=== PATIENT | male | born 1985 | race Caucasian/White ===

== ENCOUNTER 2023-12-29 21:21 | Inpatient (IN) | payer OTHER, SELFPAY ==
[2023-12-29] VITALS (11 sets, daily range): BP systolic 133–154; BP diastolic 76–90; PULSE 103–111; TEMP 37.1; O2SAT 98–100; BMI 27.7
[2023-12-29 21:51] LABS: Clarity Urine CLEAR (CLEAR); Color Urine DK. ORANGE (YELLOW); Specific Gravity Urine 1.015 (1.005-1.025)
--- NOTE | 2023-12-29 21:51 | CT_ITS ---
The [address] [address] Patient Name: ROLANDO GUARDADO MRN: [id number] date: 1985 Sex: M Assigned Patient Location: ER Current Patient Location: Accession/Order Number: [id number] Exam Date: 12/29/2023 22:07 Report Date: 12/29/2023 22:25 At the request of: AMRIT MARKER Procedure: CT abdomen pelvis wo con EXAM: CT scan of the abdomen and pelvis without contrast. Dose reduction technique used: Automated exposure control and/or adjustment of the mA and/or kV according to patient size and/or use of iterative reconstruction technique. REASON FOR EXAM: Rt flank and RLQ abd pain COMPARISON: None FINDINGS: Small fat-containing left inguinal hernia. Moderate-sized esophageal hiatal hernia. No renal, ureteral or bladder calculi. No hydronephrosis. Normal appendix. No free fluid in the abdomen or pelvis. No free intraperitoneal air. No dilated or thickened loops of small bowel or colon. Liver, pancreas, spleen, bilateral kidneys, and bilateral adrenal glands are otherwise unremarkable within the limitations of noncontrast CT. No lymphadenopathy in the abdomen or pelvis. Remainder unremarkable. CT/CT abdomen pelvis wo con IMPRESSION: No acute abnormalities in the abdomen or pelvis. Electronically authenticated by: MONROE ELISE Date: 12/29/2023 22:25
[2023-12-29 21:52] LABS: Bilirubin Urine COLOR INTERFERENCE (NEGATIVE); Glucose Urine UA COLOR INTERFERENCE mg/dL (NEGATIVE); Protein Urine COLOR INTERFERENCE mg/dL (NEG/TRACE); pH Urine COLOR INTERFERENCE (5.0-9.0)
[2023-12-29 21:53] LABS: Blood Urine COLOR INTERFERENCE (NEGATIVE); Ketones Urine COLOR INTERFERENCE mg/dL (NEGATIVE); Leukocyte Esterase Urine COLOR INTERFERENCE (NEGATIVE); Nitrite Urine COLOR INTERFERENCE (NEGATIVE); Urine Microscopic Indicated YES; Urobilinogen Urine COLOR INTERFERENCE EU/dL (0.2-1.0)
--- NOTE | 2023-12-29 21:53 | ED_ITS ---
HPI - Male Genitourinary General Chief complaint: Urogenital-Male Stated complaint: UTI Complaint Time Seen by Provider: 12/29/23 21:39 Source: patient Mode of arrival: walk-in Limitations: no limitations History of Present Illness HPI Narrative: This 38-year-old male presents for evaluation of right flank pain and dysuria. The patient states the symptoms started presently 6 days ago when he was having pain with urination. He started drinking more fluids and has been taking Urichol and Azo mild relief of his symptoms. He states he started having flank pain earlier today. He has not having any nausea or vomiting. He denies any penile discharge or concerns for STDs. He has not had a fever. He states that several years ago when he was having hematuria he was seen by a local urologist Dr. Allred. Dr. Allred has since and he is not follow-up with the urologist currently. He denies any diarrhea. He denies any fever. He denies any heavy lifting or strenuous activity causes urine to become dark. He denies any testicular pain or scrotal pain Related Data Home Medications ?Medication ?Instructions ?Recorded ?Confirmed URICALM 2 tab PO TID 12/29/23 12/29/23 methenamine-sod malika-salicyl 162 2 tab PO TID 12/29/23 12/29/23 mg-97 mg-65 mg tablet pantoprazole 40 mg tablet,delayed 40 mg PO QDAY 12/29/23 12/29/23 release Allergies Allergy/AdvReac Type Severity Reaction Status Date / Time acetaminophen [From Vicodin] AdvReac Abdominal Verified 12/29/23 21:31 Pain hydrocodone [From Vicodin] AdvReac Abdominal Verified 12/29/23 21:31 Pain Review of Systems ROS Status of ROS 10 or more systems reviewed and unremark able except as noted in history and below Exam Narrative Exam Narrative: Nurses note and vital signs reviewed and patient is not hypoxic. Blood pressure is elevated at 154/90 and pulse is elevated at 111, he is afebrile and has a normal pulse ox General: Thin, mildly uncomfortable appearing male, no respiratory distress Skin: Warm, dry, no pallor noted. There is no rash noted. Head: Normocephalic, atraumatic Eye: Normal conjunctiva, no drainage, EOMI. PERRL Ears, Nose, Mouth, and Throat: oral mucosa is moist. Cardiovascular: Regular Rate and RhythmS1 S2, no murmurs, rubs or gallops Respiratory: Patient is in no distress, no accessory muscle use, lungs are clear to auscultation, no wheezing, rales or rhonchi Back: non-tender, no reproducible flank tenderness GI: Normal bowel sounds, Tenderness at McBurney's point without rebound guarding or rigidity, negative psoas sign, negative obturator sign, negative Rovsing sign Musculoskeletal: The patient has no evidence of calf tenderness, no pitting edema, symmetrical pulses noted bilaterally Neurological: A&O x4, normal speech Psychiatric: Cooperative Constitutional Vital Signs, click to edit/add: Last Vital Signs Temp 98.3 F 12/30/23 01:30 Pulse 87 12/30/23 01:30 Resp 18 12/30/23 01:30 BP 135/81 12/30/23 01:45 Pulse Ox 96 12/30/23 01:45 O2 Del Method Room Air 12/29/23 21:34 Course Vital Signs Vital signs: Vital Signs Temperature 98.7 F 12/29/23 21:34 Pulse Rate 111 H 12/29/23 21:34 Respiratory Rate 18 12/29/23 21:34 Blood Pressure 154/90 H 12/29/23 21:34 Pulse Oximetry 100 12/29/23 21:34 Oxygen Delivery Method Room Air 12/29/23 21:34 Temperature 98.3 F 12/30/23 01:30 Pulse Rate 87 12/30/23 01:30 Respiratory Rate 18 12/30/23 01:30 Blood Pressure 135/81 12/30/23 01:45 Pulse Oximetry 96 12/30/23 01:45 Oxygen Delivery Method Room Air 12/29/23 21:34 MDM - Male Genitourinary MDM Narrative Medical decision making narrative: This 38-year-old male who has been seen in the past by urology due to hematuria and flank pain with no findings after a cystoscopy presents for evaluation of 4 days of hematuria. The hematuria started on Wednesday with painful hematuria. The patient states he felt like he was urinating razor blades. He has had intermi ttent hematuria since then. He has been taking [id number] bladder relief medications. He states that at times the urine has been very dark and other times it is more like cranberry juice and/or orange. The patient does also have a history of hemorrhoids and states that any use the bathroom he often has a moderate amount of bleeding and the hemorrhoids come out, he is able to reduce the hemorrhoids himself and has not had any issues with them for the past several weeks. On arrival the patient was noted to be mildly tachycardic with a pulse of 111. He was tender in the right lower quadrant but not particularly in the right flank. His urine was red but clear. An IV was placed and he is medicated with IV fluids Toradol and Zofran. He did not have any nausea at the time he was medicated but I think that he may have a kidney stone that would result in nausea and vomiting. Routine labs urinalysis and noncontrast CT scan were ordered. The patient has a white count of 5.4 and hemoglobin of 21.5.The patient does not complain of any chest pain, dizziness or syncope. I repeated the labs to confirm the low hemoglobin and repeat hemoglobin was 5.1. Electrolytes were normal including a normal BUN/creatinine. Lactic acid is elevated at 3.3. 2 sets of blood cultures are ordered. The patient was empirically treated with IV Rocephin for the urinary symptoms. I repeated a CT scan with IV contrast to rule out any perinephric hematoma or other source of bleeding. CT scan is included in the body of this report does not show any acute findings besides a hiatal hernia and multiple pulmonary nodules. Culture is pending at this time. After IV fluids a repeat lactic acid was ordered and is normal now at 0.9. He was type and screened and consented to blood product administration 2 units of packed red bloods were ordered. Transfusion was initiated in the emergency department. He has remained hemodynamically stable. Case was discussed with the hospitalist the patient is accepted for admission. The [place] [id number] CT Scan Report Signed Patient: ROLANDO GUARDADO MR#: [id number] : 1985 Acct:[id number] Age/Sex: 38 / M ADM Date: 12/29/23 Loc: ER Attending Dr: Ordering Physician: Monica Pelayo Date of Service: 12/29/23 Procedure(s): CT abdomen pelvis w con Accession Number(s): [id number] cc: YEHUDA MARIE ~ The [facility] [address] [id number] Patient Name: ROLANDO GUARDADO MRN: [facility]:[id number] date: 1985 Sex: M Assigned Patient Location: ER Current Patient Location: ER Accession/Order Number: [id number] Exam Date: 12/29/2023 23:22 Report Date: 12/30/2023 00:44 At the request of: MONICA MARKER Procedure: CT abdomen pelvis w con EXAM: CT abdomen pelvis w con HISTORY: hematuria, flank pain COMPARISON: CT abdomen and pelvis examination of the same date. TECHNIQUE: Axial CT images through the abdomen and pelvis were obtained after the intravenous administration of contrast. Coronal and sagittal reformats were obtained. Dose reduction techniques were achieved by using automated exposure control and/or adjustment of mA and/or kV according to patient size and/or use of iterative reconstruction technique. FINDINGS: There is a 0.3 cm nodule in the right middle lobe (series 3, image 11). There is a suspected lymph node along the right major fissure measuring up to 2 mm (series 3, image 4). There are scattered calcified granulomas in the lungs. There is a 0.5 cm nodule in the right lower lobe (series 3, image 7). There is a 0.3 cm nodule in the right lower lobe (series 3, image 12). There are calcified left hilar lymph nodes. There is a 0.2 cm nodule in the left lower lobe (series 3, image 13). There is a moderate-sized fluid-filled hiatal hernia. Abdomen: The liver and spleen enhance homogeneously without focal lesion. There is no intra or extrahepatic biliary duct dilatation. The gallbladder is unremarkable. Splenic calcifications are suggestive of prior granulomatous disease. There are scattered colonic diverticula without evidence of acute inflammation. Otherwise, the pancreas, adrenal glands, kidneys, and bowel loops, including the appendix, are unremarkable. There is no mesenteric or retroperitoneal lymphadenopathy. Pelvis: The bladder and rectum are unremarkable. There is no iliac or inguinal lymphadenopathy. There is a small fat-containing left inguinal hernia. Bone windows show no aggressive osseous lesions. CT/CT abdomen pelvis w con IMPRESSION: 1. No renal or ureteral calculi are seen. 2. Scattered pulmonary nodules measuring up to 0.5 cm. Recommend follow-up according to Fleischner Society guidelines: An optional CT of the chest in one year if the patient is high risk. 3. Moderate-sized fluid-filled hiatal hernia. 4. Scattered colonic diverticula without evidence of acute inflammation. 5. Normal appendix. Electronically authenticated by: Gregoria PAINTING Date: 12/30/2023 00:44 Medical Records Medical records narrative: [place] [address] CT Scan Report Signed Patient: ROLANDO GUARDADO MR#: [id number] : 1985 Acct:[id number] Age/Sex: 38 / M ADM Date: 12/29/23 Loc: ER Attending Dr: Ordering Physician: Monica Pelayo Date of Service: 12/29/23 Procedure(s): CT abdomen pelvis wo con Accession Number(s): [id number] cc: FRANKYEHUDA Willam [address] [address] Patient Name: ROLANDO GUARDADO MRN: [id number] date: 1985 Sex: M Assigned Patient Location: ER Current Patient Location: ER Accession/Order Number: [id number] Exam Date: 12/29/2023 22:07 Report Date: 12/29/2023 22:25 At the request of: MONICA PELAYO Procedure: CT abdomen pelvis wo con EXAM: CT scan of the abdomen and pelvis without contrast. Dose reduction technique used: Automated exposure control and/or adjustment of the mA and/or kV according to patient size and/or use of iterative reconstruction technique. REASON FOR EXAM: Rt flank and RLQ abd pain COMPARISON: None FINDINGS: Small fat-containing left inguinal hernia. Moderate-sized esophageal hiatal hernia. No renal, ureteral or bladder calculi. No hydronephrosis. Normal appendix. No free fluid in the abdomen or pelvis. No free intraperitoneal air. No dilated or thickened loops of small bowel or colon. Liver, pancreas, spleen, bilateral kidneys, and bilateral adrenal glands are otherwise unremarkable within the limitations of noncontrast CT. No lymphadenopathy in the abdomen or pelvis. Remainder unremarkable. CT/CT abdomen pelvis wo con IMPRESSION: No acute abnormalities in the abdomen or pelvis. Electronically authenticated by: MONROE ELISE Date: 12/29/2023 22:25 Lab Data Labs: Lab Results 12/29/23 12/29/23 12/29/23 Range/Units 21:45 21:58 22:40 WBC 7.4 6.9 (4.0-11.0) 10^3/uL RBC 3.63 L 3.49 L (4.70-6.10) 10^6/uL Hgb 5.4 L* 5.1 L* (14.0-18.0) g/dL Hct 21.5 L* 20.6 L* (42.0-54.0) % MCV 59.2 L 59.0 L (80.0-94.0) fL MCH 14.9 L 14.6 L (25.9-34.0) pg MCHC 25.1 L 24.8 L (29.9-35.2) g/dL RDW 17.9 H 18.2 H (11.0-15.0) % Plt Count 430 394 (150-450) 10^3/uL MPV 9.8 9.8 (9.5-13.5) fL Neut % (Auto) 62.3 60.6 (43.0-75.0) % Lymph % (Auto) 27.1 26.9 (20.5-60.0) % Jones % (Auto) 8.9 10.5 (1.7-12.0) % Eos % (Auto) 0.9 1.0 (0.9-7.0) % Baso % (Auto) 0.7 0.9 (0.2-2.0) % Neut # (Auto) 4.6 4.2 (1.4-6.5) 10^3/uL Lymph # (Auto) 2.0 1.8 (1.2-3.8) 10^3/uL Jones # (Auto) 0.7 0.7 (0.3-0.8) 10^3/uL Eos # (Auto) 0.1 0.1 (0.0-0.7) 10^3/uL Baso # (Auto) 0.1 0.1 (0.0-0.1) 10^3/uL Abs Immat Gran (auto) 0.01 0.01 (0.00-0.03) 10^3/uL Imm/Tot Granulo (auto) 0.1 0.1 (0.0-0.5) % Sodium 141 (136-145) mmol/L Potassium 3.3 L (3.5-5.1) mmol/L Chloride 103 (98-107) mmol/L Carbon Dioxide 24.4 (21.0-32.0) mmol/L Anion Gap 16.9 BUN 10.0 (7.0-18.0) mg/dL Creatinine 1.13 (0.70-1.30) mg/dL Est GFR ( Amer) >60 (>=60) Est GFR (Non-Af Amer) >60 (>=60) BUN/Creatinine Ratio 8.8 Glucose 134 H (74-106) mg/dL Lactate 3.3 H* (0.4-2.0) mmol/L Calcium 9.1 (8.5-10.1) mg/dL Total Bilirubin 0.3 (0.2-1.0) mg/dL AST 11 L (15-37) U/L ALT 19 (16-63) U/L Alkaline Phosphatase 74 (46-116) U/L Total Protein 7.4 (6.4-8.2) g/dL Albumin 4.1 (3.4-5.0) g/dL Globulin 3.3 g/dL Albumin/Globulin Ratio 1.2 Urine Color Dk. orange (YELLOW) Urine Clarity Clear (CLEAR) Urine pH Color interference A (5.0-9.0) Ur Specific [place] 1.015 (1.005-1.025) Urine Protein Color interference A (NEG/TRACE) mg/dL Urine Glucose (UA) Color interference A (NEGATIVE) mg/dL Urine Ketones Color interference A (NEGATIVE) mg/dL Urine Occult Blood Color interference A (NEGATIVE) Urine Nitrite Color interference A (NEGATIVE) Urine Bilirubin Color interference A (NEGATIVE) Urine Urobilinogen Color interference A (0.2-1.0) EU/dL Ur Leukocyte Esterase Color interference A (NEGATIVE) Urine RBC 0-2 (0-2) #/HPF Urine WBC 0-2 A (NONE SEEN) #/HPF Ur Squamous Epith Cells Rare (NONE/RARE) #/LPF Urine Crystals None seen (None Seen) #/HPF Urine Bacteria None seen (NONE SEEN) #/HPF Urine Casts None seen (NONE SEEN) #/LPF Urine Mucus Large A (NONE SEEN) Ur Culture Indicated? Already ordered Blood Type A Negative Antibody Screen Negative Crossmatch See Detail 12/30/23 Range/Units 01:05 WBC (4.0-11.0) 10^3/uL RBC (4.70-6.10) 10^6/uL Hgb (14.0-18.0) g/dL Hct (42.0-54.0) % MCV (80.0-94.0) fL MCH (25.9-34.0) pg MCHC (29.9-35.2) g/dL RDW (11.0-15.0) % Plt Count (150-450) 10^3/uL MPV (9.5-13.5) fL Neut % (Auto) (43.0-75.0) % Lymph % (Auto) (20.5-60.0) % Jones % (Auto) (1.7-12.0) % Eos % (Auto) (0.9-7.0) % Baso % (Auto) (0.2-2.0) % Neut # (Auto) (1.4-6.5) 10^3/uL Lymph # (Auto) (1.2-3.8) 10^3/uL Jones # (Auto) (0.3-0.8) 10^3/uL Eos # (Auto) (0.0-0.7) 10^3/uL Baso # (Auto) (0.0-0.1) 10^3/uL Abs Immat Gran (auto) (0.00-0.03) 10^3/uL Imm/Tot Granulo (auto) (0.0-0.5) % Sodium (136-145) mmol/L Potassium (3.5-5.1) mmol/L Chloride (98-107) mmol/L Carbon Dioxide (21.0-32.0) mmol/L Anion Gap BUN (7.0-18.0) mg/dL Creatinine (0.70-1.30) mg/dL Est GFR ( Amer) (>=60) Est GFR (Non-Af Amer) (>=60) BUN/Creatinine Ratio Glucose (74-106) mg/dL Lactate 0.9 (0.4-2.0) mmol/L Calcium (8.5-10.1) mg/dL Total Bilirubin (0.2-1.0) mg/dL AST (15-37) U/L ALT (16-63) U/L Alkaline Phosphatase (46-116) U/L Total Protein (6.4-8.2) g/dL Albumin (3.4-5.0) g/dL Globulin g/dL Albumin/Globulin Ratio Urine Color (YELLOW) Urine Clarity (CLEAR) Urine pH (5.0-9.0) Ur Specific [place] (1.005-1.025) Urine Protein (NEG/TRACE) mg/dL Urine Glucose (UA) (NEGATIVE) mg/dL Urine Ketones (NEGATIVE) mg/dL Urine Occult Blood (NEGATIVE) Urine Nitrite (NEGATIVE) Urine Bilirubin (NEGATIVE) Urine Urobilinogen (0.2-1.0) EU/dL Ur Leukocyte Esterase (NEGATIVE) Urine RBC (0-2) #/HPF Urine WBC (NONE SEEN) #/HPF Ur Squamous Epith Cells (NONE/RARE) #/LPF Urine Crystals (None Seen) #/HPF Urine Bacteria (NONE SEEN) #/HPF Urine Casts (NONE SEEN) #/LPF Urine Mucus (NONE SEEN) Ur Culture Indicated? Blood Type Antibody Screen Crossmatch Critical Care Time Critical Care Time Critical Care Time: Yes Total Critical Care Time: 35 Attestation: . Discharge Plan Discharge Chief Complaint: Urogenital-Male Clinical Impression: Hematuria, Pulmonary nodules, Acute blood loss anemia Patient Disposition: Admitted as Observation Time of Disposition Decision: 02:19 Condition: Good Prescriptions / Home Meds: No Action methenamine-sod malika-salicyl 162-97-65 mg tablet 2 tab PO TID URICALM 2 tab PO TID pantoprazole 40 mg tablet,delayed release (DR/EC) 40 mg PO QDAY Print Language: Sudanese Referrals: YEHUDA MARIE [Primary Care Provider] - 1 week
[2023-12-29 21:58] LABS: Bacteria Urine NONE SEEN #/HPF (NONE SEEN); Cast Seen? NONE SEEN #/LPF (NONE SEEN); Crystals Seen? None Seen #/HPF (None Seen); Mucus Urine LARGE (NONE SEEN); RBC Urine 0-2 #/HPF (0-2); Squamous Epithelial Cell Urine RARE #/LPF (NONE/RARE); Urine Culture Indicated ALREADY ORDERED; WBC Urine 0-2 #/HPF (NONE SEEN)
[2023-12-29] MEDS: 0.9 % SODIUM CHLORIDE 1,000 ML 1000 ML IV (22:02)
[2023-12-29] MEDS: KETOROLAC TROMETHAMINE 30 MG/ML VIAL IVP (22:03)
[2023-12-29 22:07] LABS: Basophils Absolute Auto 0.1 10^3/uL (0.0-0.1); Basophils Percent Auto 0.7 % (0.2-2.0); Eosinophils Absolute Auto 0.1 10^3/uL (0.0-0.7); Eosinophils Percent Auto 0.9 % (0.9-7.0); Immature Granulocytes Abs Auto 0.01 10^3/uL (0.00-0.03); Immature Granulocytes Pct Auto 0.1 % (0.0-0.5); Lymphocytes Percent Auto 27.1 % (20.5-60.0); Mean Corpuscular HGB Conc 25.1 g/dL (29.9-35.2); Mean Corpuscular Hemoglobin 14.9 pg (25.9-34.0); Mean Corpuscular Volume 59.2 fL (80.0-94.0); Mean Platelet Volume 9.8 fL (9.5-13.5); Monocytes Absolute Auto 0.7 10^3/uL (0.3-0.8); Monocytes Percent Auto 8.9 % (1.7-12.0); Neutrophils Absolute Auto 4.6 10^3/uL (1.4-6.5); Neutrophils Percent Auto 62.3 % (43.0-75.0); Platelet Count 430 10^3/uL (150-450); Red Blood Count 3.63 10^6/uL (4.70-6.10); Red Cell Distribution Width 17.9 % (11.0-15.0); White Blood Count 7.4 10^3/uL (4.0-11.0)
[2023-12-29 22:17] LABS: Hematocrit 21.5 % (42.0-54.0); Hemoglobin 5.4 g/dL (14.0-18.0)
[2023-12-29 22:24] LABS: Alanine Aminotransferase 19 U/L (16-63); Albumin Globulin Ratio 1.2; Albumin Level 4.1 g/dL (3.4-5.0); Alkaline Phosphatase 74 U/L (46-116); Anion Gap 16.9; Aspartate Amino Transferase 11 U/L (15-37); BUN Creatinine Ratio 8.8; Bilirubin Total 0.3 mg/dL (0.2-1.0); Calcium 9.1 mg/dL (8.5-10.1); Carbon Dioxide 24.4 mmol/L (21.0-32.0); Chloride 103 mmol/L (98-107); Estimated GFR (African America >60 (>=60); Estimated GFR (Non-African Ame >60 (>=60); Globulin 3.3 g/dL; Glucose 134 mg/dL (74-106); Potassium 3.3 mmol/L (3.5-5.1); Sodium 141 mmol/L (136-145); Total Protein 7.4 g/dL (6.4-8.2)
[2023-12-29 22:27] LABS: Lactate/Lactic Acid 3.3 mmol/L (0.4-2.0)
[2023-12-29 22:58] LABS: Basophils Absolute Auto 0.1 10^3/uL (0.0-0.1); Basophils Percent Auto 0.9 % (0.2-2.0); Eosinophils Absolute Auto 0.1 10^3/uL (0.0-0.7); Immature Granulocytes Abs Auto 0.01 10^3/uL (0.00-0.03); Immature Granulocytes Pct Auto 0.1 % (0.0-0.5); Lymphocytes Absolute Auto 1.8 10^3/uL (1.2-3.8); Lymphocytes Percent Auto 26.9 % (20.5-60.0); Mean Corpuscular HGB Conc 24.8 g/dL (29.9-35.2); Mean Corpuscular Hemoglobin 14.6 pg (25.9-34.0); Mean Platelet Volume 9.8 fL (9.5-13.5); Monocytes Absolute Auto 0.7 10^3/uL (0.3-0.8); Monocytes Percent Auto 10.5 % (1.7-12.0); Neutrophils Absolute Auto 4.2 10^3/uL (1.4-6.5); Neutrophils Percent Auto 60.6 % (43.0-75.0); Platelet Count 394 10^3/uL (150-450); Red Blood Count 3.49 10^6/uL (4.70-6.10); Red Cell Distribution Width 18.2 % (11.0-15.0); White Blood Count 6.9 10^3/uL (4.0-11.0)
[2023-12-29 23:01] LABS: Hematocrit 20.6 % (42.0-54.0); Hemoglobin 5.1 g/dL (14.0-18.0)
--- NOTE | 2023-12-29 23:05 | CT_ITS ---
The [address] [address] Patient Name: ROLANDO GUARDADO MRN: [facility]:[id number] date: 1985 Sex: M Assigned Patient Location: ER Current Patient Location: Accession/Order Number: [id number] Exam Date: 12/29/2023 23:22 Report Date: 12/30/2023 00:44 At the request of: AMRIT MARKER Procedure: CT abdomen pelvis w con EXAM: CT abdomen pelvis w con HISTORY: hematuria, flank pain COMPARISON: CT abdomen and pelvis examination of the same date. TECHNIQUE: Axial CT images through the abdomen and pelvis were obtained after the intravenous administration of contrast. Coronal and sagittal reformats were obtained. Dose reduction techniques were achieved by using automated exposure control and/or adjustment of mA and/or kV according to patient size and/or use of iterative reconstruction technique. FINDINGS: There is a 0.3 cm nodule in the right middle lobe (series 3, image 11). There is a suspected lymph node along the right major fissure measuring up to 2 mm (series 3, image 4). There are scattered calcified granulomas in the lungs. There is a 0.5 cm nodule in the right lower lobe (series 3, image 7). There is a 0.3 cm nodule in the right lower lobe (series 3, image 12). There are calcified left hilar lymph nodes. There is a 0.2 cm nodule in the left lower lobe (series 3, image 13). There is a moderate-sized fluid-filled hiatal hernia. Abdomen: The liver and spleen enhance homogeneously without focal lesion. There is no intra or extrahepatic biliary duct dilatation. The gallbladder is unremarkable. Splenic calcifications are suggestive of prior granulomatous disease. There are scattered colonic diverticula without evidence of acute inflammation. Otherwise, the pancreas, adrenal glands, kidneys, and bowel loops, including the appendix, are unremarkable. There is no mesenteric or retroperitoneal lymphadenopathy. Pelvis: The bladder and rectum are unremarkable. There is no iliac or inguinal lymphadenopathy. There is a small fat-containing left inguinal hernia. Bone windows show no aggressive osseous lesions. CT/CT abdomen pelvis w con IMPRESSION: 1. No renal or ureteral calculi are seen. 2. Scattered pulmonary nodules measuring up to 0.5 cm. Recommend follow-up according to Fleischner Society guidelines: An optional CT of the chest in one year if the patient is high risk. 3. Moderate-sized fluid-filled hiatal hernia. 4. Scattered colonic diverticula without evidence of acute inflammation. 5. Normal appendix. Electronically authenticated by: Gregoria PAINTING Date: 12/30/2023 00:44
[2023-12-29] MEDS: ACETAMINOPHEN 325 MG TABLET 650 MG PO (23:54)
[2023-12-30] VITALS (50 sets, daily range): BP systolic 108–144; BP diastolic 64–94; PULSE 70–94; TEMP 36.5–36.9; O2SAT 94–100; BMI 29.0
[2023-12-30] MEDS: 0.9 % SODIUM CHLORIDE 250 ML IV.SOLN IV (01:00)
[2023-12-30 01:41] LABS: Lactate/Lactic Acid 0.9 mmol/L (0.4-2.0)
[2023-12-30] MEDS: CEFTRIAXONE 1,000 MG in 0.9 % SODIUM CHLORIDE 50 ML 100 MG IV (02:27)
[2023-12-30] MEDS: DEXTROSE 5 % IN WATER 1,000 ML 75 ML IV ×2 (05:43→23:58)
[2023-12-30 06:49] LABS: Basophils Absolute Auto 0.1 10^3/uL (0.0-0.1); Basophils Percent Auto 1.2 % (0.2-2.0); Eosinophils Absolute Auto 0.1 10^3/uL (0.0-0.7); Eosinophils Percent Auto 1.5 % (0.9-7.0); Immature Granulocytes Abs Auto 0.02 10^3/uL (0.00-0.03); Immature Granulocytes Pct Auto 0.3 % (0.0-0.5); Lymphocytes Absolute Auto 2.2 10^3/uL (1.2-3.8); Lymphocytes Percent Auto 37.3 % (20.5-60.0); Mean Corpuscular HGB Conc 27.8 g/dL (29.9-35.2); Mean Corpuscular Hemoglobin 17.7 pg (25.9-34.0); Mean Corpuscular Volume 63.7 fL (80.0-94.0); Mean Platelet Volume 9.7 fL (9.5-13.5); Monocytes Absolute Auto 0.7 10^3/uL (0.3-0.8); Monocytes Percent Auto 12.7 % (1.7-12.0); Neutrophils Absolute Auto 2.7 10^3/uL (1.4-6.5); Platelet Count 323 10^3/uL (150-450); Red Blood Count 3.61 10^6/uL (4.70-6.10); Red Cell Distribution Width 23.9 % (11.0-15.0); White Blood Count 5.8 10^3/uL (4.0-11.0)
[2023-12-30 06:51] LABS: Hemoglobin 6.4 g/dL (14.0-18.0)
[2023-12-30 07:05] LABS: Alanine Aminotransferase 19 U/L (16-63); Albumin Globulin Ratio 1.2; Albumin Level 3.4 g/dL (3.4-5.0); Alkaline Phosphatase 65 U/L (46-116); Anion Gap 14.6; Aspartate Amino Transferase 11 U/L (15-37); BUN Creatinine Ratio 9.7; Bilirubin Total 0.5 mg/dL (0.2-1.0); Calcium 8.5 mg/dL (8.5-10.1); Carbon Dioxide 24.2 mmol/L (21.0-32.0); Chloride 108 mmol/L (98-107); Estimated GFR (African America >60 (>=60); Estimated GFR (Non-African Ame >60 (>=60); Globulin 2.9 g/dL; Glucose 92 mg/dL (74-106); Potassium 3.8 mmol/L (3.5-5.1); Sodium 143 mmol/L (136-145); Total Protein 6.3 g/dL (6.4-8.2)
[2023-12-30 07:10] LABS: Lactate/Lactic Acid 1.6 mmol/L (0.4-2.0)
--- NOTE | 2023-12-30 10:19 | P.HP_ITS ---
<Statement entered by Osbaldo Ramirez MD - 12/30/23 19:50> Patient seen and examined, agree with assessment and plan below. Presented with hematuria and concerned of UTI. Found severe anemia and reports GI bleeding for about a year. General surgery consulted. On antibiotics and await cultures. Diagnosis: 1. Acute blood loss anemia 2. GI bleed 3. Hematuria 4. UTI 5. Lactic acidosis 6. Pulmonary nodules HPI H&P: HPI History of Present Illness Chief complaint: UTI Complaint Narrative: 12/30/23 0935 This is a 38-year-old male patient with a relatively benign past medical history significant only for GERD, who presented to the ED last night complaining of dysuria and flank pain. He reports onset of dysuria with hematuria on Wednesday (4 days ago). He was treating himself with OTC preparations. He developed right flank pain yesterday and presented to the ED for further evaluation. Workup in the ED revealed lactic acidosis (3.3), hyperglycemia (134), positive UA, and profound anemia (5.4). He was admitted in observation to the hospitalist service last night for a UTI, hematuria, and anemia. A CT of the abdomen pelvis was negative for renal calculi or other acute urinary tract finding. Scattered indeterminate pulmonary nodules were noted with follow-up CT in 1 year recommended. Chronic diverticula were also noted. At the time of my exam the patient is resting comfortably in bed. He is pale and admits to a 2 to 3-year history of intermittent GI bleeding with BRBPR. He attributed this bleeding to his known hemorrhoids but has not pursued any further workup including no colonoscopy. He reports large loraine bleeding at times with clots. He also reports intermittent lightheadedness with standing and shortness of breath with activity for the last 6 months. He denies any abdominal pain, N/V/D, or decreased appetite. He denies NSAID overuse. The patient's admission has been changed to inpatient for suspected GI bleeding and ABLA. We have consulted general surgery for a possible colonoscopy and appreciate Dr. Padilla's assistance with this patient's care. The patient has been made n.p.o. for possible colonoscopy later today and he has had no oral intake except for sips of water since last night. The patient's hemoglobin only felipe to 6.4 after 2 units of PRBCs overnight. We have ordered an additional 2 units of PRBCs to be transfused this morning. We will repeat an H&H at 2 PM and will order further transfusions if indicated. Opioid HPI Opioid Management Most Recent Opioid Data: Last Pain Assessment 12/30/23 11:00 Last ORT Total Score 0 12/30/23 02:34 Last ORT Risk Category Low Risk 12/30/23 02:34 Review of Systems ROS Status of ROS 10 or more systems reviewed and unremark able except as noted in history and below [facility] Medical History (Updated 12/30/23 @ 11:58 by Estee Tian NP) GERD (gastroesophageal reflux disease) ?K21.9 - Gastro-esophageal reflux disease without esophagitis (ICD-10) Hiatal hernia ?K44.9 - Diaphragmatic hernia without obstruction or gangrene (ICD-10) Back pain ?M54.9 - Dorsalgia, unspecified (ICD-10) Acute hemorrhoid ?K64.9 - Unspecified hemorrhoids (ICD-10) Broken thumb ?S62.509A - Fracture of unspecified phalanx of unspecified thumb, initial encounter for closed fracture (ICD-10) Surgical History (Updated 12/30/23 @ 04:22 by Anahi Machado) H/O hernia repair ?Z98.890 - Other specified postprocedural states (ICD-10) ?Z87.19 - Personal history of other diseases of the digestive system (ICD-10) Family History (Updated 12/30/23 @ 02:45 by Anahi Machado) Father Family history of cancer Family history of hypertension Uncle Family history of cancer Grandmother Family history of cancer Grandfather Family history of cancer Family history of myocardial infarction Social History (Updated 12/30/23 @ 02:46 by Anahi Machado) Within the past year, how often did you have a drink containing alcohol: never Score interpretation: A score less than 4 is consistent with normal alcohol consumption. Smoking status: Former smoker Non-prescribed substance use: denies use Previous occupational history: mental health therapist Highest level of school completed/degree received: Master's degree Are you now , , , , never or living with a partner: In a typical week, how many times do you talk on the telephone with family, friends, or neighbors: 3 or more times per week How often do you get together with friends or relatives: once per week How often do you attend anabaptist or scientologist services: 4 or more times per year Do you belong to any clubs or organizations such as anabaptist groups unions, fraternal or athletic groups, or school groups: yes Total score: 4 Score interpretation: A score of greater than or equal to 2 indicates the lowest level of social isolation. Little interest or pleasure in doing things: not at all Feeling down, depressed, or hopeless: not at all Feel stressed/tense/nervous/anxious/difficulty sleeping: not at all Do you think of yourself as: straight/heterosexual Gender Identity: male Meds Home Medications and Allergies Home Medications ?Medication ?Instructions ?Recorded ?Confirmed ?Type URICALM 2 tab PO TID 12/29/23 12/29/23 History methenamine-sod malika-salicyl 162 2 tab PO TID 12/29/23 12/29/23 History mg-97 mg-65 mg tablet pantoprazole 40 mg tablet,delayed 40 mg PO QDAY 12/29/23 12/29/23 History release Allergies Allergy/AdvReac Type Severity Reaction Status Date / Time acetaminophen [From Vicodin] AdvReac Abdominal Verified 12/29/23 21:31 Pain hydrocodone [From Vicodin] AdvReac Abdominal Verified 12/29/23 21:31 Pain Exam Constitutional Vital Signs, click to edit/add: Last Vital Signs Temp 98.4 F 12/30/23 06:47 Pulse 77 12/30/23 10:00 Resp 20 12/30/23 06:47 BP 121/77 12/30/23 06:47 Pulse Ox 94 L 12/30/23 06:47 O2 Del Method Room Air 12/30/23 06:47 Common normals: no apparent distress, oriented x3, alert and well nourished General appearance: cooperative and other (Pale) Orientation/consciousness: Yes awake HENMT Common normals: normocephalic, head/scalp atraumatic, hearing grossly normal bilaterally, external nose normal and moist oral mucous membranes Eye Common normals: PERRL, EOMs intact bilaterally, conjunctivae normal and no scleral icterus Alignment: alignment normal Eyelid: eyelids normal Neck & C-Spine Common normals: full ROM, supple and no JVD Chest Common normals: inspection of chest normal Chest: symmetrical chest wall rise Respiratory Common normals: normal respiratory effort, no retractions, no use of accessory muscles and clear to auscultation bilaterally Effort & inspection: able to speak in complete sentences Cardio Common normals: no JVD, regular rate, regular rhythm, S2 normal heart sound, no gallops, no clicks, no murmurs, no rub and peripheral pulses 2+ throughout; S1 heart sound abnormal (split) GI Common normals: Normal to inspection, nondistended, normoactive bowel sounds present, soft to palpation, non-tender, no hepatosplenomegaly, no masses and no bruits Bladder/kidney exam: bladder normal to palpation and no CVA tenderness Back & Pelvis Common normals: thoracic and lumbar spine normal to inspection Extremity Common normals: normal capillary refill and no pedal edema General: normal exam except as noted; no clubbing and no cyanosis Neuro [place] Coma Scale: GCS not evaluated Common normals: CN's II-XII intact bilaterally, moves all extremities, no focal motor deficits and no sensory deficits noted Speech: speech normal Motor exam: strength 5/5 throughout Psych Common normals: mental status grossly normal, thought process normal, affect normal and activity/motor behavior normal Results Labs Labs: Short CBC 12/29/23 12/29/23 12/30/23 Range/Units 21:58 22:40 06:44 WBC 7.4 6.9 5.8 (4.0-11.0) 10^3/uL Hgb 5.4 L* 5.1 L* 6.4 L* (14.0-18.0) g/dL Hct 21.5 L* 20.6 L* 23.0 L* (42.0-54.0) % Plt Count 430 394 323 (150-450) 10^3/uL BMP 12/29/23 12/30/23 21:58 06:44 Sodium 141 143 Potassium 3.3 L 3.8 Chloride 103 108 H Carbon Dioxide 24.4 24.2 BUN 10.0 9.0 Creatinine 1.13 0.93 Glucose 134 H 92 Calcium 9.1 8.5 Liver Function 12/29/23 12/30/23 Range/Units 21:58 06:44 Total Bilirubin 0.3 0.5 (0.2-1.0) mg/dL AST 11 L 11 L (15-37) U/L ALT 19 19 (16-63) U/L Alkaline Phosphatase 74 65 (46-116) U/L Albumin 4.1 3.4 (3.4-5.0) g/dL Urine 12/29/23 Range/Units 21:45 Urine Color Dk. orange (YELLOW) Urine Clarity Clear (CLEAR) Urine pH Color interference A (5.0-9.0) Ur Specific [place] 1.015 (1.005-1.025) Urine Protein Color interference A (NEG/TRACE) mg/dL Urine Glucose (UA) Color interference A (NEGATIVE) mg/dL Pulse Oximetry Attestation: I have reviewed the pertinent pulse oximetry results. Imaging CT scan - abdomen: Attestation: I have reviewed the pertinent imaging results. Radiologist's impression: IMPRESSION: 1. No renal or ureteral calculi are seen. 2. Scattered pulmonary nodules measuring up to 0.5 cm. Recommend follow-up according to Fleischner Society guidelines: An optional CT of the chest in one year if the patient is high risk. 3. Moderate-sized fluid-filled hiatal hernia. 4. Scattered colonic diverticula without evidence of acute inflammation. 5. Normal appendix. Assessment and Plan Assessment and Plan (1) Acute blood loss anemia: Assessment and Plan: Acute * Adm inpatient * Hgb 5.4 in ED last night * Acute on chronic blood loss, from likely GIB - see below * Symptomatic w/ SOB w/ activity and lightheadedness w/ standing x 6 mo * 2un PRBCs transfused overnight per ED order * Repeat Hgb this morning is 6.4 * Transfuse and additional 2 un PRBCs now * Repeat HH at 1400 and give additional units if indicated * CBC daily (2) GI bleed: Assessment and Plan: Acute on Chronic * Pt reports 2-3 yr hx of intermittent GIB w/ BRBPR sometimes loraine bleeding with large clots * No previous GI work up/colonoscopy * Pt attributed bleeding to known hemorrhoids and did not pursue further work up * Consult general surgery for possible colonoscopy - we appreciate Dr Padilla' assistance with this pt's care * NPO for possible colonoscopy later today * Diverticula noted on CT imaging - possible bleeding source * See ABLA above (3) Hematuria: Assessment and Plan: Acute * Reported per pt * UA unable to determine RBCs d/t presence of AZO in urine * Probable hematuria in setting of UTI (4) Urinary tract infection: Assessment and Plan: Acute * UA positive in ED, although interference from AZO makes definitive dx difficultu * Ur C&S pending * IVPB Rocephin * No evidence of obstructive renal/urologic pathology on CT abdomen imaging (5) Lactic acidosis: Assessment and Plan: Acute * Lactic acid 3.3 in ED, resolved to 1.6 after IVF administration * Likely 2/2 GI bleeding - no other clinical indicators for sepsis noted (6) Pulmonary nodules: Assessment and Plan: Acute * Indeterminate nodules on CT imaging * Recommend follow up in 1 yr (7) GERD (gastroesophageal reflux disease): Assessment and Plan: Chronic * Continue home PPI
--- NOTE | 2023-12-30 11:25 | CM.NOTE ---
Rounds made with Dr. Ramirez. Dr. Ramirez reviews labs with Mr. Cagle and discusses Consult for General Surgeon. Mr. Cagle verbalizes understanding.
[2023-12-30 14:21] LABS: Hematocrit 26.5 % (42.0-54.0); Hemoglobin 7.5 g/dL (14.0-18.0)
[2023-12-30] MEDS: PEG3350/SOD SULF,BICARB,CL/KCL 4,000 ML SOLN.RECON 4000 ML PO (17:02)
[2023-12-31 02:00] VITALS: PULSE 69
[2023-12-31] MEDS: CEFTRIAXONE 1,000 MG in 0.9 % SODIUM CHLORIDE 50 ML 100 MG IV (02:58)
[2023-12-31 04:00] VITALS: PULSE 69
[2023-12-31 04:35] VITALS: BP 131/81; PULSE 80; TEMP 36.6; O2SAT 98
[2023-12-31 04:57] LABS: Basophils Absolute Auto 0.1 10^3/uL (0.0-0.1); Eosinophils Absolute Auto 0.1 10^3/uL (0.0-0.7); Eosinophils Percent Auto 1.8 % (0.9-7.0); Hematocrit 29.7 % (42.0-54.0); Hemoglobin 8.5 g/dL (14.0-18.0); Immature Granulocytes Abs Auto 0.02 10^3/uL (0.00-0.03); Immature Granulocytes Pct Auto 0.3 % (0.0-0.5); Lymphocytes Absolute Auto 2.2 10^3/uL (1.2-3.8); Lymphocytes Percent Auto 28.1 % (20.5-60.0); Mean Corpuscular HGB Conc 28.6 g/dL (29.9-35.2); Mean Corpuscular Hemoglobin 19.3 pg (25.9-34.0); Mean Corpuscular Volume 67.3 fL (80.0-94.0); Mean Platelet Volume 10.2 fL (9.5-13.5); Monocytes Absolute Auto 0.9 10^3/uL (0.3-0.8); Neutrophils Absolute Auto 4.4 10^3/uL (1.4-6.5); Neutrophils Percent Auto 56.8 % (43.0-75.0); Platelet Count 352 10^3/uL (150-450); Red Blood Count 4.41 10^6/uL (4.70-6.10); Red Cell Distribution Width 26.3 % (11.0-15.0); White Blood Count 7.8 10^3/uL (4.0-11.0)
[2023-12-31 05:21] LABS: Alanine Aminotransferase 16 U/L (16-63); Albumin Globulin Ratio 1.2; Albumin Level 3.7 g/dL (3.4-5.0); Alkaline Phosphatase 74 U/L (46-116); Anion Gap 14.9; Aspartate Amino Transferase 15 U/L (15-37); BUN Creatinine Ratio 6.7; Bilirubin Total 0.7 mg/dL (0.2-1.0); Calcium 9.2 mg/dL (8.5-10.1); Carbon Dioxide 23.7 mmol/L (21.0-32.0); Chloride 107 mmol/L (98-107); Estimated GFR (African America >60 (>=60); Estimated GFR (Non-African Ame >60 (>=60); Glucose 99 mg/dL (74-106); Potassium 3.6 mmol/L (3.5-5.1); Sodium 142 mmol/L (136-145); Total Protein 6.7 g/dL (6.4-8.2)
[2023-12-31 05:27] LABS: Lactate/Lactic Acid 1.1 mmol/L (0.4-2.0)
[2023-12-31 06:00] VITALS: PULSE 71
[2023-12-31] MEDS: LACTATED RINGER'S SOLUTION 1,000 ML 50 ML IV (07:20)
--- NOTE | 2023-12-31 07:30 | P.GSCN_ITS ---
History of Present Illness Consult details Consult date: 12/30/23 Reason for consult: other (acute blood loss anemia) Narrative: Pt is a 38M with hx of GERD, hiatal hernia, and unexplained hematuria who presented to ED with several days of back pain and hematuria. He was found to be severely anemic with Hgb of 5.1, and surgery was consulted for workup of acute blood loss anemia after pt also revealed he has had BRBPR for 2-3 years. This afternoon, pt is seen at bedside. He states his GI bleeding is likely due to his internal hemorrhoids, though he has never had an evaluation for this before. He states he was profuse bleeding with every BM for months at a time. There is often so much blood in the toilet it obscures the stool, and often there are many clots. He states blood is dark red but denies any black, sticky, or tarry stools. Endorses protruding hemorrhoids that he pushes back inside his rectum after bowel movements. Denies any blood in his underwear between bowel movements. Denies vomiting blood. He states he has been more lightheaded lately and often tires with activity more easily than he used to. He has had an EGD in 2017 and was diagnosed at that time with a hiatal hernia with a nearby ulcer. He had an esophageal stricture that required balloon dilation at that time, as well. He has never had a colonoscopy. He has been worked up by urology for a previous episode of hematuria associated with severe back pain but no dysuria; the hematuria resolved on its own, and no cause was found. Denies regular alcohol use, stating maybe 1 drink in the last 6 months. Former smoker. Occupation is in mental health. Denies family history of colon cancers. Denies family history of bleeding disorders. Paternal family hx of prostate cancer, bladder polyps, brain and lung cancers Maternal family hx of breast and bone cancers. Review of Systems ROS Status of ROS 10 or more systems reviewed and unremark able except as noted in h istory and below Cardiovascular Reports: lightheadedness Genitourinary Reports: painful urination and blood in urine Musculoskeletal Reports: back pain [facility] Medical History (Updated 12/30/23 @ 11:58 by Estee Tian NP) GERD (gastroesophageal reflux disease) ?K21.9 - Gastro-esophageal reflux disease without esophagitis (ICD-10) Hiatal hernia ?K44.9 - Diaphragmatic hernia without obstruction or gangrene (ICD-10) Back pain ?M54.9 - Dorsalgia, unspecified (ICD-10) Acute hemorrhoid ?K64.9 - Unspecified hemorrhoids (ICD-10) Broken thumb ?S62.509A - Fracture of unspecified phalanx of unspecified thumb, initial encounter for closed fracture (ICD-10) Surgical History (Updated 12/30/23 @ 04:22 by Anahi Machado) H/O hernia repair ?Z98.890 - Other specified postprocedural states (ICD-10) ?Z87.19 - Personal history of other diseases of the digestive system (ICD-10) Family History (Updated 12/30/23 @ 02:45 by Anahi Machado) Father Family history of cancer Family history of hypertension Uncle Family history of cancer Grandmother Family history of cancer Grandfather Family history of cancer Family history of myocardial infarction Social History (Updated 12/30/23 @ 02:46 by Anahi Machado) Within the past year, how often did you have a drink containing alcohol: never Score interpretation: A score less than 4 is consistent with normal alcohol consumption. Smoking status: Former smoker Non-prescribed substance use: denies use Previous occupational history: mental health therapist Highest level of school completed/degree received: Master's degree Are you now , , , , never or living with a partner: In a typical week, how many times do you talk on the telephone with family, friends, or neighbors: 3 or more times per week How often do you get together with friends or relatives: once per week How often do you attend jehovah's witness or congregational services: 4 or more times per year Do you belong to any clubs or organizations such as jehovah's witness groups unions, fra [employer] or athletic groups, or school groups: yes Total score: 4 Score interpretation: A score of greater than or equal to 2 indicates the lowest level of social isolation. Little interest or pleasure in doing things: not at all Feeling down, depressed, or hopeless: not at all Feel stressed/tense/nervous/anxious/difficulty sleeping: not at all Do you think of yourself as: straight/heterosexual Gender Identity: male Meds Home Medications and Allergies Home Medications ?Medication ?Instructions ?Recorded ?Confirmed ?Type URICALM 2 tab PO TID 12/29/23 12/29/23 History methenamine-sod malika-salicyl 162 2 tab PO TID 12/29/23 12/29/23 History mg-97 mg-65 mg tablet pantoprazole 40 mg tablet,delayed 40 mg PO QDAY 12/29/23 12/29/23 History release Allergies Allergy/AdvReac Type Severity Reaction Status Date / Time acetaminophen [From Vicodin] AdvReac Abdominal Verified 12/29/23 21:31 Pain hydrocodone [From Vicodin] AdvReac Abdominal Verified 12/29/23 21:31 Pain Exam Constitutional Vital Signs, click to edit/add: Last Vital Signs Temp 97.9 F 12/31/23 04:35 Pulse 71 12/31/23 06:00 Resp 16 12/31/23 04:35 BP 131/81 12/31/23 04:35 Pulse Ox 98 12/31/23 04:35 O2 Del Method Room Air 12/31/23 04:35 Common normals: no apparent distress, oriented x3, alert and well nourished General appearance: cooperative and comfortable Nutritional appearance: overweight HENMT Common normals: normocephalic and head/scalp atraumatic Head and scalp: normal to inspection Chest Common normals: inspection of chest normal Respiratory Common normals: normal respiratory effort and clear to auscultation bilaterally Effort & inspection: able to speak in complete sentences Cardio Common normals: regular rate, regular rhythm and peripheral pulses 2+ throughout GI Common normals: Normal to inspection, nondistended, normoactive bowel sounds present, soft to palpation, non-tender, no masses and no bruits Rectal Exam - Male: visual inspection normal, normal sphincter tone and hemorrhoids (small internal hemorrhoids appreciated; no active bleed detected); no prolapse Extremity Common normals: normal to inspection and full ROM Results Labs Labs: Abnormal lab results 12/29/23 12/30/23 12/31/23 Range/Units 22:40 14:16 04:27 RBC 4.41 L (4.70-6.10) 10^6/uL Hgb 7.5 L 8.5 L (14.0-18.0) g/dL Hct 26.5 L 29.7 L (42.0-54.0) % MCV 67.3 L (80.0-94.0) fL MCH 19.3 L (25.9-34.0) pg MCHC 28.6 L (29.9-35.2) g/dL RDW 26.3 H (11.0-15.0) % [place] # (Auto) 0.9 H (0.3-0.8) 10^3/uL BUN 6.0 L (7.0-18.0) mg/dL Crossmatch See Detail Diabetes panel 12/31/23 Range/Units 04:27 Sodium 142 (136-145) mmol/L Potassium 3.6 (3.5-5.1) mmol/L Chloride 107 (98-107) mmol/L Carbon Dioxide 23.7 (21.0-32.0) mmol/L BUN 6.0 L (7.0-18.0) mg/dL Creatinine 0.89 (0.70-1.30) mg/dL Glucose 99 (74-106) mg/dL Calcium 9.2 (8.5-10.1) mg/dL AST 15 (15-37) U/L ALT 16 (16-63) U/L Alkaline Phosphatase 74 (46-116) U/L Total Protein 6.7 (6.4-8.2) g/dL Albumin 3.7 (3.4-5.0) g/dL Calcium panel 12/31/23 Range/Units 04:27 Calcium 9.2 (8.5-10.1) mg/dL Albumin 3.7 (3.4-5.0) g/dL Pituitary panel 12/31/23 Range/Units 04:27 Sodium 142 (136-145) mmol/L Potassium 3.6 (3.5-5.1) mmol/L Chloride 107 (98-107) mmol/L Carbon Dioxide 23.7 (21.0-32.0) mmol/L BUN 6.0 L (7.0-18.0) mg/dL Creatinine 0.89 (0.70-1.30) mg/dL Glucose 99 (74-106) mg/dL Calcium 9.2 (8.5-10.1) mg/dL Adrenal panel 12/31/23 Range/Units 04:27 Sodium 142 (136-145) mmol/L Potassium 3.6 (3.5-5.1) mmol/L Chloride 107 (98-107) mmol/L Carbon Dioxide 23.7 (21.0-32.0) mmol/L BUN 6.0 L (7.0-18.0) mg/dL Creatinine 0.89 (0.70-1.30) mg/dL Glucose 99 (74-106) mg/dL Calcium 9.2 (8.5-10.1) mg/dL Total Bilirubin 0.7 (0.2-1.0) mg/dL AST 15 (15-37) U/L ALT 16 (16-63) U/L Alkaline Phosphatase 74 (46-116) U/L Total Protein 6.7 (6.4-8.2) g/dL Albumin 3.7 (3.4-5.0) g/dL All other labs normal. Assessment and Plan Assessment and Plan (1) Acute blood loss anemia: (2) GI bleed: (3) Hematuria: (4) Urinary tract infection: (5) Lactic acidosis: (6) Pulmonary nodules: (7) GERD (gastroesophageal reflux disease): Plan 38M with GI hx presenting for 2-3 years of rectal bleeding at 6 days of hematuria with dysuria. Hgb improved from 5.1 to 6.4 s/p 4 units PRBC. MCV 59. Plan -EGD and colonoscopy planned for 12/30 -Bowel prep, clear liquid diet -Recommend lab studies to better delineate microcytic anemia; iron, TIBC, ferritin, B6, lead
--- NOTE | 2023-12-31 07:59 | PM.GSPRC ---
Date of procedure: 12/31/23 Indications for Procedure: anemia Pre-op diagnosis: anemia iron deficiency unexplained Post-op diagnosis: other (prepyloric gastric ulcer small superficial without active bleeding; medium hiatal hernia; mild esophagitis) Procedure: EGD with biopsy prepyloric gastric ulcer, antrum, distal esophagus colonoscopy Findings: prepyloric gastric ulcer mild gastritis and mild esophagitis medium-sized hiatal hernia Minimal diverticulosis Internal hemorrhoids with no signs of active bleeding Anesthesia: MAC Surgeon: Sp Padilla Procedure Summary: PROCEDURE: The patient was taken to the Endoscopy Suite, placed in the left lateral recumbent position, given IV sedation as above. the Olympus EGD scope was advanced under direct visualization into the posterior pharynx esophagus through a medium-sized hiatal hernia into the stomach where there was a small prepyloric gastric ulcer seen without any signs of active bleeding or clots. It was very superficial. Scope was traversed through the pylorus and the 1st 2nd 3rd and 4th portions of the duodenum which were completely normal. The scope was returned to the stomach retroflexed on itself looking the GE junction which was normal except for the hiatal hernia. Biopsies of the ulcer were taken of the antrum to rule out H. pylori. Stasis was maintained. The scope was then withdrawn to the distal esophagus where he was noted to have a medium hiatal hernia and mild esophagitis and one biopsy was taken there. Hemostasis maintained the rest the esophagus was completely normal. The scope was removed from the mouth. A rectal digital exam was performed. The sphincter tone was found to be normal. No rectal masses were appreciated. prostate smooth nonenlarged without nodules.The Olympus video colonoscope was advanced under direct visualization to the rectum, sigmoid colon, descending colon, transverse colon and ascending colon to the ileocecal valve. The underside of the valve was seen. appendiceal lumen was visualized. There are a few diverticuli in the sigmoid colon area minimal. Prep was good.The scope was slowly withdrawn with air being desufflated as it was withdrawn. No gross tumors or polyps were seen. the scope was retroflexed on itself looking at the internal rectal area and there were some small internal hemorrhoids but nothing actively bleeding with the appearance of bleeding.The patient tolerated the procedure well and went to the Recovery Area in satisfactory condition. Estimated blood loss (mL): 0 Specimens: antral and esophageal biopsies Complications: No Condition: stable Disposition: PACU
[2023-12-31 08:59] VITALS: BP 103/59; PULSE 77; TEMP 36.6; O2SAT 96
[2023-12-31] MEDS: OMEPRAZOLE 40 MG CAPSULE.DR PO (09:38)
--- NOTE | 2023-12-31 11:16 | CM.NOTE ---
Rounds made with Dr. Ramirez. Dr. Ramirez reviews EGD/Colonoscopy findings with Randal. Dr. Ramirez explained need to follow up with Urology and General Surgery. Also explained discharge medications and High Fiber diet. Randal verbalizes understanding. Plan for discharge today.
--- NOTE | 2023-12-31 11:27 | PM.DS1 ---
DS: Providers Provider Date of admission: 12/30/23 11:37 Primary care physician: YEHUDA MARIE Consults: 12/30/23 09:50 Consult to General Surgeon Routine Consulting Provider: Sp Padilla Reason for consultation: Ac GIB/ABLA Has provider been notified: No DS: Diagnosis Discharge Diagnosis (1) Acute blood loss anemia: (2) GI bleed: (3) Hematuria: (4) Urinary tract infection: (5) Lactic acidosis: (6) Chronic prepyloric ulcer: (7) Esophagitis: (8) Diverticulosis: (9) Hiatal hernia with GERD: (10) Pulmonary nodules: DS: Summary Hospital Course Hospital Course: Reason for admission: See ER note and H&P for details. 38 y/o male to ER with dysuria and blood in urine. C/o pain with urination for about 1 week. Urine dark and blood. Started using OTC azo and increased fluid intake. Reports prior urology evaluation and cystoscopy few years ago and hematuria resolved on own. Developed nausea and emesis and to ER. WBC normal and hgb low at 5.1. Gave 2 units PRBC and admitted. Hospital course: Repeat hgb 6.4 and gave additional 2 units. Reports feeling weak and lightheaded for months. Reports GI bleeding off and on for months and often will fill toilet with blood after BM. Reports internal hemorrhoids and thought source of bleeding but never had colonoscopy. General surgery consulted. Repeat hgb stable at 8.5. EGD and colonoscopy performed which showed prepyloric ulcer and esophagitis without active bleeding. Also found diverticula and hemorrhoids without bleeding. Increased protonix to BID. Discharged home in stable condition. Will increase protonix to BID. Follow up with surgery and can discuss treatment of hemorrhoids. Need to follow up with urology for hematuria. Time Spent with Patient Time attestation: Total time spent providing and/or coordinating discharge services: Time spent: greater than 30 minutes Exam Constitutional Vital Signs, click to edit/add: Last Vital Signs Temp 97.8 F 12/31/23 08:59 Pulse 77 12/31/23 08:59 Resp 18 12/31/23 08:59 BP 103/59 12/31/23 08:59 Pulse Ox 96 12/31/23 08:59 O2 Del Method Room Air 12/31/23 08:59 Documenting provider has reviewed patient's vital signs: yes Common normals: no apparent distress, oriented x3 and alert HENMT Common normals: normocephalic Eye Common normals: PERRL and EOMs intact bilaterally Respiratory Common normals: normal respiratory effort and clear to auscultation bilaterally Cardio Common normals: regular rate, no gallops, no murmurs and no rub GI Common normals: Normal to inspection, nondistended, normoactive bowel sounds present and non-tender Extremity Common normals: no pedal edema DS: Data Data Completed and Pending Labs on day of discharge: Labs from last 24 hours 12/31/23 12/30/23 12/29/23 04:27 14:16 22:40 WBC 7.8 RBC 4.41 L Hgb 8.5 L 7.5 L Hct 29.7 L 26.5 L MCV 67.3 L MCH 19.3 L MCHC 28.6 L RDW 26.3 H Plt Count 352 MPV 10.2 Neut % (Auto) 56.8 Lymph % (Auto) 28.1 [place] % (Auto) 12.0 Eos % (Auto) 1.8 Baso % (Auto) 1.0 Neut # (Auto) 4.4 Lymph # (Auto) 2.2 [place] # (Auto) 0.9 H Eos # (Auto) 0.1 Baso # (Auto) 0.1 Abs Immat Gran (auto) 0.02 Imm/Tot Granulo (auto) 0.3 Sodium 142 Potassium 3.6 Chloride 107 Carbon Dioxide 23.7 Anion Gap 14.9 BUN 6.0 L Creatinine 0.89 Est GFR ( Amer) >60 Est GFR (Non-Af Amer) >60 BUN/Creatinine Ratio 6.7 Glucose 99 Lactate 1.1 Calcium 9.2 Total Bilirubin 0.7 AST 15 ALT 16 Alkaline Phosphatase 74 Total Protein 6.7 Albumin 3.7 Globulin 3.0 Albumin/Globulin Ratio 1.2 Blood Type A Negative Antibody Screen Negative Crossmatch See Detail Discharge Plan Discharge Disposition: Home, Self-Care Condition: Good Discharge Medications: New cefdinir 300 mg capsule 300 mg PO BID 10 Days Qty: 20 0RF pantoprazole 40 mg tablet,delayed release (DR/EC) 40 mg PO BID Qty: 60 0RF Continued methenamine-sod malika-salicyl 162-97-65 mg tablet 2 tab PO TID URICALM 2 tab PO TID Discontinued pantoprazole 40 mg tablet,delayed release (DR/EC) 40 mg PO QDAY Activity: resume usual activities as tolerated Diet: advance to your usual diet Print Language: Barbadian Forms: Portal Instructions Follow Up Appointments: January 25 @ 12pm with Aniya Miller NP ([facility] with Dr. Padilla) [address], [place] [phone] April 04 @ 10:20 with BHAVESH [facility], [address] , [facility] [phone]
--- NOTE | 2023-12-31 12:12 | SWNOTE1 ---
DONG received message from [facility] and they can accept and will start precert today. DONG notified nursing, pt, and pt's . SW encouraged pt to participate in therapy, even bed exercises. SW let him know if he does not participate his insruance will deny him.
[2024-01-02 10:48] LABS: H Pylori Tissue, Urease Negative
--- NOTE | 2024-01-04 14:12 | CM.DCFOLLOWU ---
Person spoke with: patient How are you feeling? having some pain, today but saw his PCP today How is your pain? some pain Did you understand your discharge instructions? yes Do you have any questions about your discharge instructions? no Were you given any prescriptions at discharge? yes Were you able to get your prescriptions filled? yes Do you understand how to take your medications as ordered? yes Do you have any questions about your follow up appointment and do you plan to keep your follow up appointment? no questions, reviewed follow up apts with pt Is there anything else that you would like to discuss? no Questions/Comments/Concerns/Other: N/A
== END 2023-12-31 12:09 | disposition home or self-care (01) | DRG 378 ==
LOC: ER 12-30 02:19 → MS 12-30 14:45
PROVIDERS: Nurse Practitioner Acute Care; Surgery; Admitting Provider Nurse Practitioner; Emergency Provider Emergency Medicine; PCP Family Medicine; Visit Provider Nurse Practitioner
PROC: 0DB78ZX Excision of Stomach, Pylorus, Via Natural or Artificial Opening Endoscopic, Diagnostic (ICD-10-PCS; principal; 2023-12-31 07:30)
DX: K25.4 Chronic or unspecified gastric ulcer with hemorrhage (principal); D62 Acute posthemorrhagic anemia; N39.0 Urinary tract infection, site not specified; E87.20 Acidosis, unspecified; K57.31 Diverticulosis of large intestine without perforation or abscess with bleeding; R31.9 Hematuria, unspecified; R91.8 Other nonspecific abnormal finding of lung field; K44.9 Diaphragmatic hernia without obstruction or gangrene; Z87.891 Personal history of nicotine dependence; D50.9 Iron deficiency anemia, unspecified; K64.8 Other hemorrhoids; K21.00 Gastro-esophageal reflux disease with esophagitis, without bleeding; K29.70 Gastritis, unspecified, without bleeding
CPT/HCPCS: 36415; 36430; 74176; 74177; 80053; 81001; 83605; 85014; 85018; 85025; 86850; 86900; 86901; 87040; 87077; 87086; 88305; 96365; 96366; 96375; 99285; 99999; J2704; P9016; Q9967